=== PATIENT | male | born 1970 | race Caucasian/White ===

== ENCOUNTER 2017-07-07 02:50 | Emergency (ER) | END 2017-07-07 06:14 | disposition left against medical advice (07) ==

== ENCOUNTER 2017-07-07 07:29 | Emergency (ER) | END 2017-07-07 12:20 | disposition home or self-care (01) ==

== ENCOUNTER 2017-07-10 03:28 | Emergency (ER) | END 2017-07-10 09:16 | disposition home or self-care (01) ==